=== PATIENT | female | born 1945 | race American Indian/Alaskan Native ===

== ENCOUNTER 2017-05-23 10:00 | Outpatient (CLI) | payer MEDICARE ==
--- NOTE | 2017-05-23 11:25 | Mammography Report ---
Bilateral digital screening mammogram with CAD. Comparison study is dated April 16, 2016. Findings: There are scattered fibroglandular densities bilaterally. Areas of minimal nodular asymmetry in the upper-outer quadrant of the left breast are again noted. The largest area has diminished in size while the others have remained grossly stable. No architectural distortion or other suspicious findings are seen. No significant focal abnormalities are seen in the right breast. Impression: Stable benign findings. BI-RADS code: 2. Recommendation: Annual screening.
== END 2017-05-23 10:01 | disposition home or self-care (01) ==
LOC: MAMMO 10:00
PROVIDERS: ATTEND Family Medicine
DX: Z12.31 Encounter for screening mammogram for malignant neoplasm of breast (principal)
CPT/HCPCS: 77067; G0202

== ENCOUNTER 2018-05-26 11:12 | Outpatient (CLI) | payer MEDICARE ==
--- NOTE | 2018-05-26 11:47 | Mammography Report ---
BILATERAL MAMMOGRAM: FINDINGS: The breast tissue is heterogeneously dense, which could obscure detection of small masses (approximately 50%-75% glandular). No mass, distortion, suspicious calcification, or skin change is seen. No significant changes when compared to exams dating back to April 2016. CAD was utilized. IMPRESSION: Negative mammogram. There is no mammographic evidence of malignancy. RECOMMENDATION: Follow-up per ACS guidelines. BI-RADS CATEGORY: 1 = Negative ACR BI-RADS MAMMOGRAPHIC CODES: 0 = Needs additional imaging evaluation; 1 = Negative; 2 = Benign; 3 = Probably benign; 4 = Suspicious; 5 = Malignant; 6 = Known biopsy-proven malignancy COMMENT: 1. Dense breast tissue, i.e., adenosis, fibrocystic changes, etc., may obscure an underlying neoplasm. 2. Approximately 10% of cancers are not detected with mammography. 3. A negative mammography report should not delay biopsy if a clinically suspicious mass is present. COMMENT: Patient follow-up letters are generated in [employer].
== END 2018-05-26 11:13 | disposition home or self-care (01) ==
LOC: MAMMO 11:12
PROVIDERS: ATTEND Family Medicine
DX: Z12.31 Encounter for screening mammogram for malignant neoplasm of breast (principal)
CPT/HCPCS: 77067

== ENCOUNTER 2019-06-25 09:15 | Outpatient (CLI) | payer MEDICARE ==
--- NOTE | 2019-06-29 12:03 | Mammography Report ---
BONE DEXA CLINICAL: Postmenopausal. COMPARISON: 01/22/2013 TECHNIQUE: 2 site bone DEXA performed on an Hologic scanner. FINDINGS: The average BMD of the lumbar spine L1-L4 is 0.906g/cm squared with a T score of -1.3 and a Z score o f +0.4. This compares to 0.916g/cm squared on the last exam and represents a -1.1 % change from the [ previous baseline]. The average BMD of the left hip is 0.676 g/cm squared with a T score of -2.2and a Z score of -1.0. Th is compares to 0.689 g/cm squared on the last exam and represents a -1.8 % change from the [previous baseline]. IMPRESSION: 1. WHO classification: Osteopenia increased with fracture risk based on spine measurements. 2. WHO classification Osteopenia with increased fracture risk based on left hip measurements. 3. RECOMMENDATION: Clinical correlation and routine screening. Definitions: BMD equal bone mineral density T score = BMD related to peak bone mass of young adult (Tift expressed an standard deviation) Z score = age-matched BMD expressed in SD World health organization (WHO) diagnostic criteria Normal T score greater than equal to 1 standard deviation Osteopenia T score between -1 and -2.4 standard deviation Osteoporosis T score -2.5 standard deviation or below. Note: BMD is not the only risk factor for fracture; also consider factors such as the patient's age, risk of falling, previous osteoporotic fracture, family history of osteoporotic fractures, current sm oker and low body weight. Z scores are not calculated if greater than 80 years of age. Signer Name: Twan Garland MD Signed: 06/29/2019 11:58 AM Workstation Name: [id number]
--- NOTE | 2019-06-29 12:11 | Mammography Report ---
DIGITAL SCREENING MAMMOGRAM WITH CAD, 06/25/2019 INDICATION: Routine screening mammography. TECHNIQUE: Digital bilateral 2D mammography was obtained in the craniocaudal and mediolateral obliq ue projections. This examination was interpreted with the benefit of Computer-Aided Detection analysi s. COMPARISON: 05/26/2018 FINDINGS: Breast Density: The breasts are heterogeneously dense, which may obscure small masses. There is no evidence of dominant mass, suspicious calcifications or architectural distortion in eithe r breast. IMPRESSION: No mammographic evidence of malignancy. Follow up recommendation: Routine yearly BI-RADS Category 1: Negative. A "normal" or negative report should not discourage follow up or biopsy of a clinically significant f inding. A written summary of these findings will be mailed to the patient. The patient will be entered into a mammography reporting system which will generate a reminder letter for the patient's next appointmen t at the appropriate interval. The [employer] recommends yearly mammograms starting at age 40 and continuing as l coleen as a woman is in good health. Breast MRI is recommended for women with an approximate 20-25% or greater lifetime risk of breast cancer, including women with a strong family history of breast or ova edna cancer or who have been treated for Hodgkin's disease. Signer Name: Twan Garland MD Signed: 06/29/2019 12:07 PM Workstation Name: [id number]
== END 2019-06-25 09:16 | disposition home or self-care (01) ==
LOC: MAMMO 09:15
PROVIDERS: ATTEND Family Medicine
DX: Z13.820 Encounter for screening for osteoporosis (principal); Z12.31 Encounter for screening mammogram for malignant neoplasm of breast; Z78.0 Asymptomatic menopausal state
CPT/HCPCS: 77067; 77080